=== PATIENT | male | born 1960 | race Caucasian/White ===

== ENCOUNTER 2020-09-07 01:14 | Day surgery (SDC) | payer OTHER, SELFPAY ==
[2020-08-31 14:28] VITALS: BMI 32.2
--- NOTE | 2020-09-07 09:49 | WPDHPUPDATE1 ---
History and Physical Update Update Date/Time: 09/07/20 09:49 History and Physical has been reviewed, including an updated exam of the patient. There are NO changes in the patient's condition. Risks, benefits, and alternatives have been discussed and questions answered. Patient agrees to proceed with procedure.
--- NOTE | 2020-09-07 10:39 | WPDHPUPDATE1 ---
History and Physical Update Update Date/Time: 09/07/20 10:39 History and Physical has been reviewed, including an updated exam of the patient. There are NO changes in the patient's condition. Risks, benefits, and alternatives have been discussed and questions answered. Patient agrees to proceed with procedure.
[2020-09-07 11:00] VITALS: BP 107/64; PULSE 67; RESP 18; O2SAT 96
[2020-09-07 11:10] VITALS: BP 118/70; PULSE 68; RESP 18; O2SAT 97
[2020-09-07] MEDS: LIDO 1%/EPINEPHRINE 1:100,000 20 ML VIAL 5 ML INFILTRATE (11:19)
[2020-09-07 11:20] VITALS: BP 118/66; PULSE 70; RESP 18; O2SAT 99
[2020-09-07 11:24] VITALS: BP 110/74; PULSE 73; RESP 16; O2SAT 96
--- NOTE | 2020-09-07 11:40 | PM.OP ---
Procedure Note - Brief Procedure Note - Brief Date of procedure: 09/07/20 Pre-op diagnosis: right carpal tunnel syndrome Post-op diagnosis: same Procedure performed: Right open carpal tunnel release Anesthesia: local Surgeon: Trae Bloom MD Estimated blood loss (mL): 0 Drains: No Packing: No Pathology: none sent Complications: No immediate complications Disposition: same day
--- NOTE | 2020-09-07 11:42 | W.PM.PROC2 ---
Procedure Note - Detailed Date of Procedure 09/07/20 Pre-op Diagnosis right carpal tunnel syndrome Post-op Diagnosis same Procedure Performed right open carpal tunnel release Surgeon Trae Bloom MD Anesthesia local Indications carpal tunnel syndrome failing conservative treatment Description of Procedure the right palm was marked on the patient in the holding area. She was taken to the operating room placed supine on operating table. Time-out was held and confirmed. Extremity was prepped and draped in usual fashion. The site was marked for incision and locally infiltrated with 1% lidocaine with epinephrine. The tourniquet was utilized to 250 mmHg. The incision was made as marked and dissection was carried bluntly through the subcutaneous tissue to the palmar fascia. This and the carpal ligament were incised with a 15. Blade opening the canal. Under 3 point retraction the ligament was divided distally and proximally for complete release. Gentleman's palm was thick and the ligament was thick. The skin was closed with interrupted 4-0 nylon. The usual bandage was applied tourniquet was released he is discharged from the operating room stable condition. Has a prescription for hydrocodone 9. Estimated Blood Loss 0 Drains No Packing No Pathology none sent Complications No immediate complications Condition stable Disposition same day
== END 2020-09-07 11:45 | disposition home or self-care (01) ==
PROVIDERS: PCP Family Medicine; Visit Provider Plastic Surgery
PROC: (CPT 64721; principal; 2020-09-07 10:15)
DX: G56.01 Carpal tunnel syndrome, right upper limb (principal); I25.2 Old myocardial infarction; Z95.0 Presence of cardiac pacemaker
CPT/HCPCS: 64721; A9270